=== PATIENT | male | born 1975 | race American Indian/Alaskan Native ===

== ENCOUNTER 2020-05-06 07:50 | Outpatient (CLI) | payer OTHER ==
--- NOTE | 2020-05-06 11:56 | Fluoroscopy Report ---
MODIFIED BARIUM SWALLOW INDICATION: DYSPHAGIA TECHNIQUE: Swallowing was evaluated in the lateral position under direct fluoroscopy. FINDINGS: The patient was evaluated with thin liquids, puree, semisolid and solid consistencies. No penetration or aspiration was witnessed. There was however mild vallecular residual seen with all consistencies which cleared with additional swallowing. Please correlate with the formal report by sp [facility] therapy. IMPRESSION: Mild vallecular residual with all consistencies. Fluoroscopic time: 1.6 minutes Number of fluoroscopic images: 1 Signer Name: Altaf Minor Jr, MD Signed: 05/06/2020 11:51 AM Workstation Name: [id number]
== END 2020-05-06 07:51 | disposition home or self-care (01) ==
LOC: PT 07:50
PROVIDERS: ATTEND Otolaryngology
DX: R94.4 Abnormal results of kidney function studies (principal); R13.10 Dysphagia, unspecified
CPT/HCPCS: 74230